=== PATIENT | female | born 1965 | race Caucasian/White ===

== ENCOUNTER 2016-11-17 12:34 | Emergency (ER) | payer MEDICARE ==
[2016-11-17] MEDS ORDERED: PROMETHAZINE 25 MG/ML VIAL ONE (13:58)
[2016-11-17] MEDS ORDERED: SODIUM CHLORIDE 0.9% 50 ML IV ONE (13:58)
[2016-11-17] MEDS ORDERED: Meclizine HCl 25 MG TAB ONE (13:58)
[2016-11-17] MEDS ORDERED: SODIUM CHLORIDE 0.9% 1,000 ML ONE (13:58)
== END 2016-11-17 16:43 | disposition home or self-care (01) ==
LOC: ER 12:34
DX: B34.9 Viral infection, unspecified (principal); R11.2 Nausea with vomiting, unspecified; F19.10 Other psychoactive substance abuse, uncomplicated; F17.210 Nicotine dependence, cigarettes, uncomplicated; Z79.899 Other long term (current) drug therapy
CPT/HCPCS: 36415; 70450; 74022; 80053; 80307; 81001; 82553; 83690; 84484; 84702; 85025; 87804; 87880; 93005; 96361; 96365; 99285; J2550